=== PATIENT | male | born 1935 | race Caucasian/White ===

== ENCOUNTER 2017-07-13 11:11 | Inpatient (IN) | payer OTHER ==
[~2017-07-13] VITALS: Ht 177.8 cm; Wt 83.0 kg
[~2017-07-13 11:11] MED LIST: ADULT LOW DOSE81 MG PO; ANTACID650 MG PO; CALCIUM ACETAT667 MG PO; CIPROFLOXACIN500 M3 PO; CRESTOR20 MG PO; HCTZ PO; HYDROCHLOROTH12.5 M1; HYDROCODONE-AP1 EAC6 PO; LISINOPRIL10 MG; MULTIVITAMINS PO; NEPHROCAPS SOFT1 CAP PO; PRILOSEC 20 MG20 MG PO
[2017-07-13 11:17] VITALS: BP 134/44
[2017-07-13 11:48] LABS: ABSOLUTE BASOPHILS 0.1 thou/uL (0.0-0.2); ABSOLUTE EOSINOPHILS 0.2 thou/uL (0.0-0.7); ABSOLUTE LYMPHOCYTES 2.2 thou/uL (0.8-5.3); ABSOLUTE MONOCYTES 0.6 thou/uL (0.0-1.2); ABSOLUTE NEUTROPHILS 6.3 thou/uL (1.6-8.1); BASOPHILS 0.7 %; EOSINOPHILS 2.6 %; HEMATOCRIT 42.7 % (42.0-52.0); HEMOGLOBIN 14.2 gm/dL (14.0-18.0); LYMPHOCYTES 23.1 %; MCH 31.3 pg (26.0-34.0); MCHC 33.1 g/dL (28.0-37.0); MCV 94.5 fL (80.0-100.0); MONOCYTES 6.8 %; MPV 8.5 fl. (7.2-11.1); NUCLEATED RBCS 0 /100WBC; PLATELET COUNT* 191 thou/uL (150-400); POLYS 66.8 %; RBC 4.52 mil/uL (4.50-6.00); RDW-CV 13.4 % (10.5-14.5); WBC 9.4 thou/uL (4.0-11.0)
[2017-07-13 11:56] LABS: CALCIUM 9.6 mg/dL (8.5-10.1); CREATININE 1.8 mg/dL (0.6-1.3)
[2017-07-13 12:06] LABS: ALBUMIN 3.7 g/dL (3.4-5.0); TOTAL BILIRUBIN 0.6 mg/dL (<0.1-1.0); TOTAL PROTEIN 7.9 g/dL (6.4-8.2)
[2017-07-13 12:08] LABS: PCO2 23.1 mmHg (35.0-45.0); PO2 77.1 mmHg (75.0-100.0); pH 7.547 (7.340-7.450)
[2017-07-13 12:09] LABS: BE -0.8 mmol/L (-2 to +3); HCO3 19.6 mmol/L (22.0-26.0)
[2017-07-13 13:46] VITALS: BP 137/44
[2017-07-13 14:19] VITALS: BP 155/71
[2017-07-13 16:04] VITALS: BP 120/31
[2017-07-13 20:00] VITALS: BP 132/48
[2017-07-14 00:19] VITALS: BP 115/47
[2017-07-14 04:25] VITALS: BP 116/41
[2017-07-14 05:28] LABS: ABSOLUTE EOSINOPHILS 0.1 thou/uL (0.0-0.7); ABSOLUTE LYMPHOCYTES 1.4 thou/uL (0.8-5.3); ABSOLUTE MONOCYTES 0.7 thou/uL (0.0-1.2); ABSOLUTE NEUTROPHILS 4.3 thou/uL (1.6-8.1); BASOPHILS 0.5 %; EOSINOPHILS 1.5 %; HEMATOCRIT 35.9 % (42.0-52.0); LYMPHOCYTES 21.7 %; MCH 31.9 pg (26.0-34.0); MCHC 34.1 g/dL (28.0-37.0); MCV 93.4 fL (80.0-100.0); MONOCYTES 10.7 %; NUCLEATED RBCS 0 /100WBC; PLATELET COUNT* 156 thou/uL (150-400); POLYS 65.6 %; RBC 3.84 mil/uL (4.50-6.00); RDW-CV 13.4 % (10.5-14.5); WBC 6.5 thou/uL (4.0-11.0)
[2017-07-14 05:39] LABS: HEMOGLOBIN 12.2 gm/dL (14.0-18.0)
[2017-07-14 05:46] LABS: CALCIUM 8.8 mg/dL (8.5-10.1); CREATININE 1.6 mg/dL (0.6-1.3); POTASSIUM 3.7 mmol/L (3.5-5.1)
[2017-07-14 08:42] VITALS: BP 121/53
[2017-07-14 15:48] VITALS: BP 111/37
[2017-07-14 20:00] VITALS: BP 116/46
[2017-07-15] VITALS: BP 127/52
[2017-07-15 04:00] VITALS: BP 123/57
[2017-07-15 04:41] LABS: ABSOLUTE EOSINOPHILS 0.3 thou/uL (0.0-0.7); ABSOLUTE LYMPHOCYTES 1.4 thou/uL (0.8-5.3); ABSOLUTE MONOCYTES 0.6 thou/uL (0.0-1.2); ABSOLUTE NEUTROPHILS 3.4 thou/uL (1.6-8.1); BASOPHILS 0.8 %; EOSINOPHILS 5.8 %; MCH 32.2 pg (26.0-34.0); MCHC 34.4 g/dL (28.0-37.0); MCV 93.7 fL (80.0-100.0); MONOCYTES 10.3 %; MPV 9.1 fl. (7.2-11.1); NUCLEATED RBCS 0 /100WBC; PLATELET COUNT* 145 thou/uL (150-400); POLYS 58.1 %; RBC 3.73 mil/uL (4.50-6.00); RDW-CV 13.4 % (10.5-14.5); WBC 5.8 thou/uL (4.0-11.0)
[2017-07-15 04:53] LABS: ALBUMIN 2.8 g/dL (3.4-5.0); CREATININE 1.4 mg/dL (0.6-1.3); POTASSIUM 3.6 mmol/L (3.5-5.1); TOTAL BILIRUBIN 0.3 mg/dL (<0.1-1.0); TOTAL PROTEIN 6.1 g/dL (6.4-8.2)
[2017-07-15 07:54] VITALS: BP 128/56
[2017-07-15] MEDS ORDERED: AUGMENTIN 875-1 EACH PO (10:32)
[2017-07-15 10:33] VITALS: BP 128/56
== END 2017-07-15 12:40 | disposition home or self-care (01) | DRG 177 ==
LOC: M.ERS 11:11 → M.ORTHSURG 12:44 → M.TBA-ER 12:44 → M.ORTHSURG 14:06
PROVIDERS: Emergency Medicine; ADMIT Internal Medicine
DX: J15.6 Pneumonia due to other Gram-negative bacteria (principal); J96.00 Acute respiratory failure, unspecified whether with hypoxia or hypercapnia; N17.9 Acute kidney failure, unspecified; N18.9 Chronic kidney disease, unspecified; E86.0 Dehydration; I25.10 Atherosclerotic heart disease of native coronary artery without angina pectoris; B19.20 Unspecified viral hepatitis C without hepatic coma; I25.2 Old myocardial infarction; Z95.5 Presence of coronary angioplasty implant and graft; Z87.891 Personal history of nicotine dependence; Z90.49 Acquired absence of other specified parts of digestive tract; Z79.82 Long term (current) use of aspirin; Z79.899 Other long term (current) drug therapy

== ENCOUNTER → 2017-08-13 | Outpatient (CLI) | payer OTHER ==
[~2017-08-13] MED LIST changes: +AUGMENTIN 875-1 EACH PO; +COREG6.25 MG PO; +COZAAR 50 MG TA50 M2 PO; +PREDNISONE 20 M20 M1 PO; +VENTOLIN HFA 1818 GM INH; +ZPAK PO
== END ==
LOC: M.RAD 09:48
DX: J18.9 Pneumonia, unspecified organism (principal); J98.11 Atelectasis; R91.8 Other nonspecific abnormal finding of lung field; I70.8 Atherosclerosis of other arteries

== ENCOUNTER 2018-02-07 09:34 | Emergency (ER) | payer OTHER ==
[~2018-02-07] VITALS: Ht 180.3 cm; Wt 80.7 kg
[~2018-02-07 09:34] MED LIST changes: -COREG6.25 MG PO; -COZAAR 50 MG TA50 M2 PO; -PREDNISONE 20 M20 M1 PO; -VENTOLIN HFA 1818 GM INH; -ZPAK PO
[2018-02-07] MEDS ORDERED: COREG6.25 MG PO (09:48)
[2018-02-07] MEDS ORDERED: COZAAR 50 MG TA50 M2 PO (09:49)
[2018-02-07 09:58] LABS: ABSOLUTE BASOPHILS 0.1 thou/uL (0.0-0.2); ABSOLUTE EOSINOPHILS 0.1 thou/uL (0.0-0.7); ABSOLUTE LYMPHOCYTES 1.7 thou/uL (0.8-5.3); ABSOLUTE MONOCYTES 0.5 thou/uL (0.0-1.2); ABSOLUTE NEUTROPHILS 5.9 thou/uL (1.6-8.1); BASOPHILS 0.9 %; EOSINOPHILS 1.4 %; HEMATOCRIT 45.6 % (42.0-52.0); HEMOGLOBIN 15.2 gm/dL (14.0-18.0); MCH 31.9 pg (26.0-34.0); MCHC 33.3 g/dL (28.0-37.0); MCV 95.6 fL (80.0-100.0); MONOCYTES 6.3 %; MPV 8.7 fl. (7.2-11.1); NUCLEATED RBCS 0 /100WBC; PLATELET COUNT* 247 thou/uL (150-400); POLYS 71.4 %; RBC 4.77 mil/uL (4.50-6.00); RDW-CV 13.1 % (10.5-14.5); WBC 8.3 thou/uL (4.0-11.0)
[2018-02-07 10:06] LABS: APTT 29.9 Seconds (25.0-31.3); INR 1.1; PROTIME 10.9 Seconds (9.20-11.50)
[2018-02-07 10:18] LABS: ANION GAP 10 mmol/L (7-16); BUN 18 mg/dL (7-18); CALCIUM 9.4 mg/dL (8.5-10.1); CHLORIDE 103 mmol/L (98-107); CO2 26 mmol/L (21-32); CREATININE 1.5 mg/dL (0.6-1.3); GLUCOSE 113 mg/dL (70-99); SODIUM 139 mmol/L (136-145)
[2018-02-07 10:29] LABS: ALKALINE PHOSPHATASE 66 U/L (46-116); LIPASE 199 U/L (73-393); MAGNESIUM 1.7 mg/dL (1.8-2.4); NT-PRO BRAIN NAT PEPTIDE 2294 pg/mL (<300); SGOT 32 U/L (15-37); SGPT 34 U/L (30-65); TOTAL PROTEIN 8.1 g/dL (6.4-8.2); TROPONIN-I LEVEL <0.06 ng/mL (<0.06)
[2018-02-07] MEDS ORDERED: ZPAK PO (10:39)
[2018-02-07] MEDS ORDERED: VENTOLIN HFA 1818 GM INH (10:39)
[2018-02-07] MEDS ORDERED: PREDNISONE 20 M20 M1 PO (10:39)
[2018-02-07 10:49] VITALS: BP 151/60
--- NOTE | 2018-02-07 15:05 | EKG ---
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: : [id number] Requested By: Gurwinder Reyna Order Number: [id number] MD: Steven Perry Measurements Intervals [place] Rate: 64 P: 49 AK: 246 QRS: 50 QRSD: 92 T: 92 QT: 389 QTc: 402 Interpretive Statements Sinus rhythm Prolonged AK interval Baseline wander in lead(s) V5 Compared to ECG 10/15/2016 07:25:16 First degree AV block now present Sinus tachycardia no longer present Electronically Signed On 02-07-2018 15:04:57 CDT by Steven Perry [email or web address] <ELECTRONICALLY SIGNED> By: Steven Perry MD, [facility] 02/07/18 1504 [id number] Steven Perry MD, [facility] /EPI
== END 2018-02-07 10:54 | disposition home or self-care (01) ==
LOC: M.ERS 09:34
PROVIDERS: Family Medicine
DX: J44.1 Chronic obstructive pulmonary disease with (acute) exacerbation (principal); J40 Bronchitis, not specified as acute or chronic; R11.2 Nausea with vomiting, unspecified; Z90.49 Acquired absence of other specified parts of digestive tract; Z86.19 Personal history of other infectious and parasitic diseases

== ENCOUNTER 2020-11-29 09:19 | Emergency (ER) | payer OTHER ==
[~2020-11-29] VITALS: Ht 177.8 cm; Wt 83.9 kg
[~2020-11-29 09:19] MED LIST changes: +COREG6.25 MG PO; +COZAAR 50 MG TA50 M2 PO; +PREDNISONE 20 M20 M1 PO; +VENTOLIN HFA 1818 GM INH; +ZPAK PO
[2020-11-29 09:30] VITALS: BP 167/68
== END 2020-11-29 09:52 | disposition home or self-care (01) ==
LOC: M.ERS 09:19
DX: M25.442 Effusion, left hand (principal); Z87.891 Personal history of nicotine dependence; Z90.49 Acquired absence of other specified parts of digestive tract; Z86.19 Personal history of other infectious and parasitic diseases